=== PATIENT | female | born 1955 ===

== ENCOUNTER 2016-10-24 12:04 | Emergency (ER) | payer OTHER ==
[2016-10-24 12:25] VITALS: BP 157/88; PULSE 73; RESP 18; TEMP 98.4; O2SAT 99
--- NOTE | 2016-10-24 12:40 | ED PDOC ---
HPI: Back Time Seen by Provider: 10/24/16 12:26 Chief Complaint (Nursing): Back Pain Chief Complaint (Provider): back pain History Per: Patient History/Exam Limitations: no limitations Onset/Duration Of Symptoms: Days (current episode for 1 week ), Intermittent Episodes (for one year) Additional Complaint(s): Halima Camacho is a 61 year old female, with no previous medical history, who presents to the ED with complaints of lower back pain intermittently ongoing for the past year. Pt states pain sometimes radiates to the left leg and sometimes down the right leg. Pt states pain is currently radiating down the left leg and reports this episode to be ongoing for the past week. Pt denies any recent trauma, heavy lifting, numbness, tingling, incontinency or urinary symptoms. Pt reports to self medicating with tylenol and naproxen to alleviate the symptoms with minimal relief. Pt denies any additional complaints at this time. PMD: Dr. Hernández in [place], [place] Past Medical History Reviewed: Historical Data, Nursing Documentation, Vital Signs Vital Signs: Last Vital Signs Temp 98.4 F 10/24/16 12:22 Pulse 73 10/24/16 12:22 Resp 18 10/24/16 12:22 BP 157/88 H 10/24/16 12:22 Pulse Ox 99 10/24/16 12:22 - Medical History PMH: No Chronic Diseases - Surgical History Surgical History: No Surg Hx - Family History Family History: States: Unknown Family Hx - Home Medications Home Medications: Ambulatory Orders Medication Instructions Recorded Cyclobenzaprine [Cyclobenzaprine 10 mg PO Q8H #20 tab 10/24/16 HCl] predniSONE [predniSONE Tab] 20 mg PO DAILY #12 tab 10/24/16 - Allergies Allergies/Adverse Reactions: Allergies Allergy/AdvReac Type Severity Reaction Status Date / Time No Known Allergies Allergy Verified 10/24/16 12:21 Review of Systems ROS Statement: Except As Marked, All Systems Reviewed And Found Negative Genitourinary Female: Negative for: Dysuria, Frequency, Incontinence, Hematuria Musculoskeletal: Positive for: Back Pain, Leg Pain (left leg radiating from the back ) Neurological: Negative for: Numbness, Other (tingling ) Physical Exam - Reviewed Nursing Documentation Reviewed: Yes Vital Signs Reviewed: Yes - Physical Exam Appears: Positive for: Well, Non-toxic, No Acute Distress Skin: Positive for: Normal Color, Warm, DRY Eye Exam: Positive for: EOMI, Normal appearance, PERRL ENT: Positive for: Normal ENT Inspection Neck: Positive for: Normal, Painless ROM Cardiovascular/Chest: Positive for: Regular Rate, Rhythm Respiratory: Positive for: CNT, Normal Breath Sounds Gastrointestinal/Abdominal: Positive for: Normal Exam, Bowel Sounds, Soft. Negative for: Tenderness Back: Positive for: Vertebral Tenderness (L3 -L5). Negative for: L CVA Tenderness, R CVA Tenderness Extremity: Positive for: Other (Pain with left leg raise ). Negative for: Pedal Edema, Calf Tenderness, Deformity, Swelling Neurologic/Psych: Positive for: Alert, Oriented - ECG O2 Sat by Pulse Oximetry: 99 (RA) Pulse Ox Interpretation: Normal Medical Decision Making Medical Decision Making: Initial Impression: Sciatica Initial Plan: * x-ray lumbar spine * flexeril * prednisone * motrin * reevaluation 13:46 x-ray lumbar spine FINDINGS: BONES: Current study reveals approximately grade 1 anterior subluxation L4 over L5 and L5 over S1. . The posterior elements at each level are hypertrophic. Disc space narrowing L5-S1 level. Disc space height at L4-L5 as well as the remaining levels relatively maintained. . Mild levoscoliosis No acute compression fractures no retropulsed fragments. DISC SPACES: As above OTHER FINDINGS: None. IMPRESSION: No acute fractures. Approximately grade 1 anterior subluxation L4 over L5 and L5 over S1. . The posterior elements at each level are hypertrophic. Disc space narrowing L5-S1 level. Mild levoscoliosis 14:12 Pt was given a copy of her X-rays and reports to feeling much better. Scribe Attestation: Documented by Allison Cohen, acting as a scribe for Fatoumata Mix PA-C. Provider Scribe Attestation: All medical record entries made by the Scribe were at my direction and personally dictated by me. I have reviewed the chart and agree that the record accurately reflects my personal performance of the history, physical exam, medical decision making, and the department course for this patient. I have also personally directed, reviewed, and agree with the discharge instructions and disposition. Disposition - Clinical Impression Clinical Impression: Low back pain Counseled Patient/Family Regarding: Studies Performed, Diagnosis, Need For Followup - Disposition Referrals: [facility] [Outside] Disposition: Routine/Home Disposition Time: 14:12 Condition: STABLE Prescriptions: Cyclobenzaprine [Cyclobenzaprine HCl] 10 mg PO Q8H #20 tab predniSONE [predniSONE Tab] 20 mg PO DAILY #12 tab Instructions: Acute Low Back Pain (ED)
--- NOTE | 2016-10-24 13:48 | RAD ---
PROCEDURE: Radiographs of the Lumbar Spine. HISTORY: back pain COMPARISON: No prior. FINDINGS: BONES: Current study reveals approximately grade 1 anterior subluxation L4 over L5 and L5 over S1. . The posterior elements at each level are hypertrophic. Disc space narrowing L5-S1 level. Disc space height at L4-L5 as well as the remaining levels relatively maintained. . Mild levoscoliosis No acute compression fractures no retropulsed fragments. DISC SPACES: As above OTHER FINDINGS: None. IMPRESSION: No acute fractures. Approximately grade 1 anterior subluxation L4 over L5 and L5 over S1. . The posterior elements at each level are hypertrophic. Disc space narrowing L5-S1 level. Mild levoscoliosis
== END 2016-10-24 14:20 | disposition home or self-care (01) ==
LOC: H.ER 12:04
DX: M54.5 Low back pain (principal)